=== PATIENT | male | born 1980 | race Two or more races ===

== ENCOUNTER 2020-03-26 23:32 | Emergency (ER) | payer OTHER ==
[~2020-03-26] VITALS: Ht 182.9 cm; Wt 104.3 kg
[2020-03-27] MEDS ORDERED: KETO10TA2 PO (03:12)
== END 2020-03-27 04:25 | disposition home or self-care (01) ==
LOC: ER 23:32
DX: N20.0 Calculus of kidney (principal); R31.0 Gross hematuria; Z03.818 Encounter for observation for suspected exposure to other biological agents ruled out